=== PATIENT | female | born 1955 | race African-American/Black ===

== ENCOUNTER 2019-05-29 07:58 | Inpatient (IN) | payer MEDICAID ==
[~2019-05-29] VITALS: Ht 165.1 cm; Wt 87.5 kg
[2019-05-29] MEDS ORDERED: ONDANSETRON HCL 4MG/2ML INJ IV STA (08:28)
[2019-05-29] MEDS ORDERED: MORPHINE SULFATE 4 MG/ML CPJ (NOT FOR IM USE) IV STA (08:28)
[2019-05-29] MEDS ORDERED: NITROGLYCERIN 0.4MG TABLET SL SL PRN ×2 (08:30→12:00)
[2019-05-29 08:52] LABS: CHLORIDE 105 mEq/L (98-107)
[2019-05-29 08:56] LABS: D-DIMER 0.81 mg/L FEU (<0.50); PARTIAL THROMBOPLASTIN TIME 27.1 sec (23.4-31.0); PROTHROMBIN TIME 10.4 sec (9.6-11.0)
[2019-05-29 08:57] LABS: BASOPHILS % 0.5 % (0.0-2.0); HEMATOCRIT. 42.7 % (36.0-48.0); HEMOGLOBIN. 14.5 g/dL (12.0-16.0); LYMPHOCYTES % 22.1 % (20.0-50.0); MEAN CORPUSCULAR HEMOGLOBIN 32.1 pg (28.0-32.0); MEAN CORPUSCULAR VOLUME 94.9 fL (81.0-99.0); MEAN PLATELET VOLUME 8.2 fl (7.4-10.4); MONOCYTES % 4.6 % (2.0-8.0); NEUTROPHILS % 72.8 % (40.0-76.0); PLATELET 288 x1000/uL (130-400); RED CELL DISTRIBUTION WIDTH 13.8 % (11.6-14.6)
[2019-05-29] MEDS ORDERED: CLONIDINE 0.2MG TABLET PO ONE (09:45)
[2019-05-29] MEDS ORDERED: IOHEXOL-350 100 ML BOTTLE ONE (10:44)
[2019-05-29] MEDS ORDERED: HYDRALAZINE 20MG/ML VIAL IV ONE (11:00)
[2019-05-29] MEDS ORDERED: MAGNESIUM/ALUMINUM HYDROXIDE/SIMETHICONE 30ML UDC PO PRN (12:00)
[2019-05-29] MEDS ORDERED: ONDANSETRON HCL 4MG/2ML INJ IV PRN (12:00)
[2019-05-29] MEDS ORDERED: GUAIFENESIN 200MG/10ML SUGAR FREE UDC PO PRN (12:00)
[2019-05-29] MEDS ORDERED: IPRATROPIUM/ALBUTEROL 0.5-3(2.5)MG/3ML NEB NEB PRN (12:00)
[2019-05-29] MEDS ORDERED: LABETALOL 5MG/ML SYR 20 MG/4 ML SYRINGE IV ONE (12:00)
[2019-05-29] MEDS ORDERED: LORAZEPAM 0.5MG TABLET PO PRN (12:00)
[2019-05-29] MEDS ORDERED: DOCUSATE SODIUM 100MG CAPSULE PO PRN (12:00)
[2019-05-29] MEDS ORDERED: KETOROLAC 15MG/ML VIAL IV PRN (12:00)
[2019-05-29] MEDS ORDERED: CLONIDINE 0.1MG TABLET PO PRN (12:00)
[2019-05-29] MEDS ORDERED: ACETAMINOPHEN 325MG TABLET PO PRN (12:00)
[2019-05-29] MEDS: HYDRALAZINE HCL 25MG TABLET PO SCH ×2 (12:38→22:00)
[2019-05-29 13:00] VITALS: BP 178/106
[2019-05-29] MEDS: AMLODIPINE 10MG TABLET PO SCH (13:27)
[2019-05-29 13:40] VITALS: BP 178/106
[2019-05-29] MEDS: ENOXAPARIN 40MG/0.4ML SYR SUBCUT SCH (14:05)
[2019-05-29] MEDS ORDERED: CLON-457 MT (15:43)
[2019-05-29] MEDS ORDERED: AMLO5TAB88 MT (15:44)
[2019-05-29 15:58] LABS: CREATINE KINASE 142 IU/L (26-192)
[2019-05-29 15:59] LABS: CREATINE KINASE MB FRACTION 1.7 ng/mL (0.5-3.6)
[2019-05-29 16:00] VITALS: BP 89/62
[2019-05-29 20:13] VITALS: BP 72/48
[2019-05-29] MEDS: METOPROLOL TARTRATE 25MG TABLET PO SCH (21:00)
[2019-05-29] MEDS ORDERED: ZOLPIDEM TARTRATE 5MG TABLET PO PRN (21:00)
[2019-05-29] MEDS: LISINOPRIL 20MG TABLET PO SCH (21:00)
[2019-05-29] MEDS: FAMOTIDINE 20MG TABLET PO SCH (21:09)
[2019-05-29] MEDS: SODIUM CHLORIDE 0.9% 1,000 ML IV SCH (22:12)
[2019-05-29] MEDS ORDERED: LEVOFLOXACIN 500MG PREMIX 100 ML IV SCH (23:00)
[2019-05-29 23:58] LABS: CREATINE KINASE 118 IU/L (26-192); CREATINE KINASE MB FRACTION 1.1 ng/mL (0.5-3.6)
[2019-05-30 00:33] VITALS: BP 85/59
[2019-05-30 02:45] VITALS: BP 90/56
[2019-05-30 04:28] VITALS: BP 91/63
[2019-05-30] MEDS: HYDRALAZINE HCL 25MG TABLET PO SCH ×2 (05:18→14:00)
[2019-05-30] MEDS: SODIUM CHLORIDE 0.9% 1,000 ML IV SCH (05:50)
[2019-05-30 08:39] VITALS: BP 102/61
[2019-05-30] MEDS: METOPROLOL TARTRATE 25MG TABLET PO SCH (09:00)
[2019-05-30] MEDS ORDERED: ASPIRIN 325MG EC TABLET PO SCH (09:00)
[2019-05-30] MEDS: LISINOPRIL 20MG TABLET PO SCH (09:00)
[2019-05-30] MEDS: AMLODIPINE 10MG TABLET PO SCH (09:00)
[2019-05-30] MEDS: FAMOTIDINE 20MG TABLET PO SCH (09:07)
[2019-05-30] MEDS: ENOXAPARIN 40MG/0.4ML SYR SUBCUT SCH (09:08)
[2019-05-30 09:25] LABS: CLARITY URINE CLEAR (CLEAR); COLOR URINE DARK YELLOW (YELLOW); KETONES URINE 1+ (NEGATIVE); LEUKOCYTE ESTERASE URINE TRACE (NEGATIVE); NITRITE URINE NEGATIVE (NEGATIVE); OCCULT BLOOD URINE NEGATIVE (NEGATIVE); PROTEIN URINE TRACE (NEGATIVE)
[2019-05-30 10:01] LABS: *AMPHETAMINES SCREEN URINE NEGATIVE (NEGATIVE); *BARBITURATES SCREEN URINE NEGATIVE (NEGATIVE); *BENZODIAZEPINES SCREEN URINE NEGATIVE (NEGATIVE); *COCAINE SCREEN URINE PRESUMTIVE POSITIVE (NEGATIVE)
[2019-05-30 10:02] LABS: CANNABINOID URINE SCREEN NEGATIVE (NEGATIVE); METHADONE URINE SCREEN NEGATIVE (NEGATIVE); OPIATES URINE SCREEN PRESUMTIVE POSITIVE (NEGATIVE); PHENCYCLIDINE URINE SCREEN PRESUMTIVE POSITIVE (NEGATIVE)
[2019-05-30 12:01] VITALS: BP 114/74
[2019-05-30 13:42] VITALS: BP 114/74
[2019-05-30] MEDS ORDERED: LEVOFLOXACIN 250MG TABLET PO SCH (23:00)
[2019-05-30] MEDS ORDERED: LEVOFLOXACIN 250MG PREMIX 50 ML IV SCH (23:00)
== END 2019-05-30 14:35 | disposition home or self-care (01) | DRG 203 ==
LOC: ER 08:23 → 6WST 10:29 → ENRESERV 11:16
PROVIDERS: ADMIT Internal Medicine; ATTEND Internal Medicine
DX: R07.89 Other chest pain (principal); I10 Essential (primary) hypertension; Z79.899 Other long term (current) drug therapy
CPT/HCPCS: 36415; 71045; 71275; 80061; 80305; 81003; 82550; 82553; 83036; 83880; 84484; 85379; 93005; 93970; 99285; J0360; J1650; J1956; J2270; J2405; J3490; J7030; Q9967

== ENCOUNTER 2021-12-05 19:49 | Inpatient (IN) | payer MEDICAID ==
[~2021-12-05] VITALS: Ht 166.4 cm; Wt 90.3 kg
[~2021-12-05 19:49] MED LIST: ACET-2708 MT; AMLO5TAB88 MT; CLON-457 MT; CLON0.1T MT; FAMO-135 MT; ONDA4TAB5 MT
[2021-12-05] MEDS ORDERED: MORPHINE SULFATE 4 MG/ML CPJ (NOT FOR IM USE) IV STA (21:55)
[2021-12-05] MEDS ORDERED: ONDANSETRON HCL 4MG/2ML INJ IV STA (21:55)
[2021-12-05] MEDS ORDERED: SODIUM CHLORIDE 0.9% 1,000 ML IV ONE (22:00)
[2021-12-05] MEDS ORDERED: MORPHINE SULFATE 4 MG/ML CPJ (NOT FOR IM USE) IV NR (23:07)
[2021-12-05] MEDS ORDERED: ONDANSETRON HCL 4MG/2ML INJ IV NR (23:07)
[2021-12-05 23:15] LABS: BASOPHILS % 0.7 % (0.0-2.0); HEMATOCRIT. 42.5 % (36.0-48.0); HEMOGLOBIN. 14.2 g/dL (12.0-16.0); LYMPHOCYTES % 12.8 % (20.0-50.0); MEAN CORPUSCULAR HEMOGLOBIN 30.9 pg (28.0-32.0); MEAN CORPUSCULAR VOLUME 92.3 fL (81.0-99.0); MONOCYTES % 1.5 % (2.0-8.0); PLATELET 287 x1000/uL (130-400); RED CELL DISTRIBUTION WIDTH 14.4 % (11.6-14.6)
[2021-12-05 23:23] LABS: CHLORIDE 103 mEq/L (98-107)
[2021-12-05 23:25] LABS: PARTIAL THROMBOPLASTIN TIME 26.9 sec (23.4-31.0); PROTHROMBIN TIME 10.6 sec (9.6-11.0)
[2021-12-06] VITALS (8 sets, daily range): BP systolic 131–142; BP diastolic 85–95
[2021-12-06] MEDS ORDERED: CEFTRIAXONE 1 G PREMIX 50 ML IV ONE
[2021-12-06] MEDS ORDERED: CEFTRIAXONE 1,000 MG in DEXTROSE 5% WATER 50 ML IV SCH (01:00)
[2021-12-06] MEDS ORDERED: ASPIRIN 325MG EC TABLET PO ONE (01:45)
[2021-12-06] MEDS: CLONIDINE 0.2MG TABLET PO PRN (06:17)
[2021-12-06] MEDS ORDERED: DOCUSATE SODIUM 100MG CAPSULE PO PRN (12:15)
[2021-12-06] MEDS ORDERED: ACETAMINOPHEN 325MG TABLET PO PRN (12:15)
[2021-12-06] MEDS ORDERED: MAGNESIUM/ALUMINUM HYDROXIDE/SIMETHICONE 30ML UDC PO PRN (12:15)
[2021-12-06] MEDS ORDERED: NALOXONE HCL 0.4MG/ML VIAL IV PRN (13:00)
[2021-12-06] MEDS: ENOXAPARIN 40MG/0.4ML SYR SUBCUT SCH (13:47)
[2021-12-06] MEDS: SODIUM CHLORIDE 0.9% 1,000 ML IV SCH (13:53)
[2021-12-06] MEDS ORDERED: FAMOTIDINE 20MG TABLET PO SCH (21:00)
[2021-12-07] VITALS (8 sets, daily range): BP systolic 130–206; BP diastolic 68–136
[2021-12-07] MEDS: SODIUM CHLORIDE 0.9% 1,000 ML IV SCH ×2 (01:35→15:38)
[2021-12-07] MEDS: ONDANSETRON HCL 4MG/2ML INJ IV PRN ×2 (04:33→10:57)
[2021-12-07] MEDS: HYDROCODONE/ACETAMINOPHEN 5/325MG TABLET PO PRN (06:26)
[2021-12-07 06:28] LABS: BASOPHILS % 0.7 % (0.0-2.0); EOSINOPHILS % 0.5 % (0.0-5.0); HEMATOCRIT. 38.8 % (36.0-48.0); HEMOGLOBIN. 12.9 g/dL (12.0-16.0); LYMPHOCYTES % 33.7 % (20.0-50.0); MEAN CORPUSCULAR HEMOGLOBIN 30.6 pg (28.0-32.0); MEAN CORPUSCULAR VOLUME 92.4 fL (81.0-99.0); MEAN PLATELET VOLUME 8.7 fl (7.4-10.4); MONOCYTES % 8.3 % (2.0-8.0); NEUTROPHILS % 56.8 % (40.0-76.0); PLATELET 268 x1000/uL (130-400); RED CELL DISTRIBUTION WIDTH 14.4 % (11.6-14.6)
[2021-12-07 07:37] LABS: PHOSPHORUS 2.8 mg/dL (2.5-4.9); T4 FREE 1.24 ng/dL (0.76-1.46)
[2021-12-07] MEDS: CLONIDINE 0.2MG TABLET PO PRN (08:31)
[2021-12-07] MEDS ORDERED: AMLODIPINE 5MG TABLET PO SCH (09:00)
[2021-12-07] MEDS ORDERED: METOCLOPRAMIDE HCL 10MG/2ML VIAL IV SCH ×2 (11:45→12:00)
[2021-12-07] MEDS: METOCLOPRAMIDE HCL 10MG/2ML VIAL IV SCH ×3 (12:02→22:10)
[2021-12-07] MEDS: HYDRALAZINE 20MG/ML VIAL IV SCH ×3 (12:03→23:04)
[2021-12-07] MEDS: PANTOPRAZOLE SODIUM 40 MG/VIAL IV SCH (13:31)
[2021-12-07] MEDS: ENOXAPARIN 40MG/0.4ML SYR SUBCUT SCH (13:31)
[2021-12-07] MEDS: AMLODIPINE 5MG TABLET PO SCH (18:05)
[2021-12-07 23:56] LABS: CLARITY URINE CLEAR (CLEAR); COLOR URINE YELLOW (YELLOW); KETONES URINE NEGATIVE (NEGATIVE); LEUKOCYTE ESTERASE URINE TRACE (NEGATIVE); NITRITE URINE NEGATIVE (NEGATIVE); OCCULT BLOOD URINE NEGATIVE (NEGATIVE); PROTEIN URINE TRACE (NEGATIVE); SPECIFIC GRAVITY URINE 1.013 (1.005-1.030)
[2021-12-08 00:17] LABS: *AMPHETAMINES SCREEN URINE NEGATIVE (NEGATIVE); *BARBITURATES SCREEN URINE NEGATIVE (NEGATIVE); *BENZODIAZEPINES SCREEN URINE NEGATIVE (NEGATIVE); *COCAINE SCREEN URINE PRESUMTIVE POSITIVE (NEGATIVE); CANNABINOID URINE SCREEN NEGATIVE (NEGATIVE); METHADONE URINE SCREEN NEGATIVE (NEGATIVE); OPIATES URINE SCREEN PRESUMTIVE POSITIVE (NEGATIVE); PHENCYCLIDINE URINE SCREEN PRESUMTIVE POSITIVE (NEGATIVE)
[2021-12-08] MEDS: SODIUM CHLORIDE 0.9% 1,000 ML IV SCH ×3 (01:34→21:09)
[2021-12-08 04:00] VITALS: BP 132/74
[2021-12-08 06:01] LABS: BASOPHILS % 0.5 % (0.0-2.0); EOSINOPHILS % 0.7 % (0.0-5.0); HEMATOCRIT. 38.7 % (36.0-48.0); HEMOGLOBIN. 12.7 g/dL (12.0-16.0); LYMPHOCYTES % 46.5 % (20.0-50.0); MEAN CORPUSCULAR HEMOGLOBIN 30.2 pg (28.0-32.0); MEAN CORPUSCULAR VOLUME 92.1 fL (81.0-99.0); MEAN PLATELET VOLUME 8.4 fl (7.4-10.4); MONOCYTES % 7.7 % (2.0-8.0); NEUTROPHILS % 44.6 % (40.0-76.0); PLATELET 268 x1000/uL (130-400); RED CELL DISTRIBUTION WIDTH 14.4 % (11.6-14.6)
[2021-12-08] MEDS: METOCLOPRAMIDE HCL 10MG/2ML VIAL IV SCH ×3 (06:41→21:09)
[2021-12-08] MEDS: HYDRALAZINE 20MG/ML VIAL IV SCH ×4 (06:41→23:49)
[2021-12-08 08:00] VITALS: BP 137/102
[2021-12-08] MEDS: AMLODIPINE 5MG TABLET PO SCH ×2 (08:54→17:03)
[2021-12-08] MEDS: HYDROCODONE/ACETAMINOPHEN 5/325MG TABLET PO PRN ×2 (08:55→21:13)
[2021-12-08] MEDS: PANTOPRAZOLE SODIUM 40 MG/VIAL IV SCH (08:55)
[2021-12-08] MEDS ORDERED: PANTOPRAZOLE SODIUM 40 MG/VIAL IV SCH (09:00)
[2021-12-08 12:00] VITALS: BP 151/102
[2021-12-08] MEDS ORDERED: POTASSIUM CHLORIDE INJ 40 MEQ in DEXT 5% WATER 250 ML IV SCH (13:00)
[2021-12-08] MEDS ORDERED: KCL 20MEQ/100ML X 2 FOR TOTAL KCL 40MEQ/200ML IV SCH (15:00)
[2021-12-08] MEDS ORDERED: ENOXAPARIN 30MG/0.3ML SYR SUBCUT SCH (15:00)
[2021-12-08] MEDS: CLONIDINE 0.2MG TABLET PO PRN (15:48)
[2021-12-08 16:00] VITALS: BP 173/101
[2021-12-08] MEDS ORDERED: POTASSIUM CHLORIDE 20MEQ TABLET SR PO NR (16:00)
[2021-12-08 20:00] VITALS: BP 132/70
[2021-12-09] VITALS: BP 130/70
[2021-12-09 04:00] VITALS: BP 143/98
[2021-12-09] MEDS: METOCLOPRAMIDE HCL 10MG/2ML VIAL IV SCH (05:47)
[2021-12-09] MEDS: HYDRALAZINE 20MG/ML VIAL IV SCH (05:47)
[2021-12-09 05:50] LABS: BASOPHILS % 0.6 % (0.0-2.0); EOSINOPHILS % 1.6 % (0.0-5.0); HEMATOCRIT. 36.5 % (36.0-48.0); HEMOGLOBIN. 12.3 g/dL (12.0-16.0); LYMPHOCYTES % 43.1 % (20.0-50.0); MEAN CORPUSCULAR HEMOGLOBIN 30.7 pg (28.0-32.0); MEAN PLATELET VOLUME 8.6 fl (7.4-10.4); MONOCYTES % 9.6 % (2.0-8.0); NEUTROPHILS % 45.1 % (40.0-76.0); PLATELET 264 x1000/uL (130-400); RED BLOOD CELL COUNT 4.01 mill/uL (4.2-5.4); RED CELL DISTRIBUTION WIDTH 14.2 % (11.6-14.6)
[2021-12-09 08:00] VITALS: BP 141/90
[2021-12-09] MEDS ORDERED: METO5TAB86 PO (08:09)
[2021-12-09] MEDS ORDERED: AMLO5TAB88 MT (08:09)
[2021-12-09 08:36] VITALS: BP 141/90
[2021-12-09 09:17] VITALS: BP 141/90
[2021-12-09] MEDS: HYDROCODONE/ACETAMINOPHEN 5/325MG TABLET PO PRN (09:17)
[2021-12-09] MEDS: PANTOPRAZOLE SODIUM 40 MG/VIAL IV SCH (09:17)
[2021-12-09] MEDS: AMLODIPINE 5MG TABLET PO SCH (09:17)
[2021-12-09] MEDS: SODIUM CHLORIDE 0.9% 1,000 ML IV SCH (09:18)
== END 2021-12-09 11:26 | disposition home or self-care (01) | DRG 469 ==
LOC: ER 19:49 → MICUSO 23:34 → EDBEDREQ 23:37 → EDBEDREQTM 23:37 → 5EST 12-06 00:05 → MICUSO 12-06 03:04 → 6WST 12-06 07:12
PROVIDERS: ADMIT Internal Medicine; ATTEND Internal Medicine
DX: N17.9 Acute kidney failure, unspecified (principal); E44.1 Mild protein-calorie malnutrition; I13.10 Hypertensive heart and chronic kidney disease without heart failure, with stage 1 through stage 4 chronic kidney disease, or unspecified chronic kidney disease; I12.9 Hypertensive chronic kidney disease with stage 1 through stage 4 chronic kidney disease, or unspecified chronic kidney disease; E87.6 Hypokalemia; N18.32 Chronic kidney disease, stage 3b; Z96.659 Presence of unspecified artificial knee joint; Z20.822 Contact with and (suspected) exposure to COVID-19; I16.0 Hypertensive urgency; F19.10 Other psychoactive substance abuse, uncomplicated; F12.10 Cannabis abuse, uncomplicated; F11.10 Opioid abuse, uncomplicated; F16.10 Hallucinogen abuse, uncomplicated; Z87.891 Personal history of nicotine dependence; Z82.49 Family history of ischemic heart disease and other diseases of the circulatory system; Z83.3 Family history of diabetes mellitus; Z71.51 Drug abuse counseling and surveillance of drug abuser; Z79.899 Other long term (current) drug therapy; Z68.32 Body mass index [BMI] 32.0-32.9, adult
CPT/HCPCS: 36415; 71045; 74176; 76700; 80048; 80053; 80061; 80076; 80305; 81003; 83735; 83880; 84100; 84145; 84439; 84443; 84484; 85025; 86850; 86900; 93005; 93970; 99285; C1893; C9113; J0360; J0696; J1650; J2270; J2405; J2765; J3480; J7030; J7060

== ENCOUNTER 2023-02-22 12:14 | Inpatient (IN) | payer BC, MEDICAID ==
[~2023-02-22] VITALS: Ht 157.5 cm; Wt 82.7 kg
[~2023-02-22 12:14] MED LIST changes: -CLON0.1T MT; +METO5TAB86 PO
[2023-02-22] MEDS ORDERED: CLONIDINE 0.2MG TABLET PO ONE (13:00)
[2023-02-22] MEDS ORDERED: ONDANSETRON 4MG ODT PO ONE (13:00)
[2023-02-22] MEDS ORDERED: CLONIDINE 0.1MG TABLET PO SCH (13:15)
[2023-02-22 13:24] LABS: BASOPHILS % 0.8 % (0.0-2.0); EOSINOPHILS % 1.1 % (0.0-5.0); HEMATOCRIT. 41.7 % (36.0-48.0); HEMOGLOBIN. 13.8 g/dL (12.0-16.0); MEAN CORPUSCULAR HEMOGLOBIN 31.4 pg (28.0-32.0); MEAN CORPUSCULAR VOLUME 95.1 fL (81.0-99.0); NEUTROPHILS % 67.1 % (40.0-76.0); PLATELET 239 x1000/uL (130-400); RED BLOOD CELL COUNT 4.38 mill/uL (4.2-5.4); RED CELL DISTRIBUTION WIDTH 15.2 % (11.6-14.6); WHITE BLOOD COUNT 9.8 x1000/uL (4.5-11.0)
[2023-02-22] MEDS ORDERED: AMLODIPINE 5MG TABLET PO NR (13:30)
[2023-02-22 13:56] LABS: CHLORIDE 108 mEq/L (98-107); INDEX HEMOLYSI 1 (1-3); INDEX ICTERIC 1 (1-4); INDEX LIPEMIC 1 (1-3); POTASSIUM 4.2 mEq/L (3.5-5.1); SODIUM 138 mEq/L (136-145)
[2023-02-22 14:06] LABS: ALANINE AMINOTRANSFERASE 39 IU/L (13-61); ASPARTATE AMINOTRANSFERASE 35 IU/L (15-37); BILIRUBIN TOTAL 0.6 mg/dL (0.1-1.0); CALCIUM 9.5 mg/dL (8.5-10.1); CARBON DIOXIDE 25 mEq/L (21-32); CREATININE 1.6 mg/dL (0.6-1.3); GLUCOSE 164 mg/dL (70-105); PROTEIN TOTAL 8.5 g/dL (6.0-8.3); TROPONIN I HIGH SENSITIVITY 22 ng/L (<54); UREA NITROGEN BLOOD 26 mg/dL (7-21)
[2023-02-22 14:35] LABS: CLARITY URINE CLEAR (CLEAR); COLOR URINE YELLOW (YELLOW); GLUCOSE URINE NEGATIVE (NEGATIVE); KETONES URINE NEGATIVE (NEGATIVE); LEUKOCYTE ESTERASE URINE NEGATIVE (NEGATIVE); NITRITE URINE NEGATIVE (NEGATIVE); OCCULT BLOOD URINE TRACE (NEGATIVE); PROTEIN URINE 1+ (NEGATIVE); SPECIFIC GRAVITY URINE 1.009 (1.005-1.030); UROBILINOGEN URINE 0.2 E.U./dL (0.2-1.0)
[2023-02-22] MEDS ORDERED: ENOXAPARIN 80MG/0.8ML SYR SUBCUT NR (14:45)
[2023-02-22] MEDS ORDERED: HYDRALAZINE 20MG/ML VIAL IV NR ×2 (14:45→18:15)
[2023-02-22] MEDS ORDERED: ONDANSETRON HCL 4MG/2ML INJ IV ONE (15:00)
[2023-02-22 15:02] LABS: SQUAMOUS EPITHELIAL CELL URINE FEW /lpf (RARE/1+)
[2023-02-22 15:04] LABS: BACTERIA URINE NONE SEEN; RBC URINE 0-2 /hpf (0-2); WBC URINE NONE SEEN /hpf (0-2)
[2023-02-22] MEDS ORDERED: LABETALOL 5MG/ML SYR 20 MG/4 ML SYRINGE IV NR (20:30)
[2023-02-22] MEDS ORDERED: HYDRALAZINE 20MG/ML VIAL IV PRN (22:00)
[2023-02-22 23:00] VITALS: BP 180/101; PULSE 115; RESP 19; TEMP 98.5
[2023-02-23] MEDS: CLONIDINE 0.1MG TABLET PO SCH ×3 (06:26→22:00)
[2023-02-23 08:00] VITALS: BP 187/121; PULSE 136; RESP 20; TEMP 97.9
[2023-02-23] MEDS ORDERED: LIDOCAINE HCL 1% 10 MG/ML 10ML VIAL ONE (08:23)
[2023-02-23 09:20] LABS: BASOPHILS % 0.8 % (0.0-2.0); HEMOGLOBIN. 13.5 g/dL (12.0-16.0); LYMPHOCYTES % 19.9 % (20.0-50.0); MEAN CORPUSCULAR HEMOGLOBIN 31.2 pg (28.0-32.0); MEAN CORPUSCULAR VOLUME 94.4 fL (81.0-99.0); MEAN PLATELET VOLUME 8.8 fl (7.4-10.4); MONOCYTES % 7.7 % (2.0-8.0); NEUTROPHILS % 71.6 % (40.0-76.0); PLATELET 279 x1000/uL (130-400); RED BLOOD CELL COUNT 4.34 mill/uL (4.2-5.4); RED CELL DISTRIBUTION WIDTH 14.5 % (11.6-14.6); WHITE BLOOD COUNT 14.6 x1000/uL (4.5-11.0)
[2023-02-23 09:28] LABS: PROTHROMBIN TIME 10.8 sec (9.6-11.0)
[2023-02-23 09:56] LABS: POTASSIUM 4.2 mEq/L (3.5-5.1)
[2023-02-23 10:02] LABS: CALCIUM 9.5 mg/dL (8.5-10.1); CREATININE 1.6 mg/dL (0.6-1.3)
[2023-02-23] MEDS: AMLODIPINE 5MG TABLET PO SCH ×2 (11:58→21:42)
[2023-02-23 12:00] VITALS: BP 128/79; PULSE 98; RESP 18; TEMP 98
[2023-02-23 12:50] LABS: *AMPHETAMINES SCREEN URINE NEGATIVE (NEGATIVE); *BARBITURATES SCREEN URINE NEGATIVE (NEGATIVE); *BENZODIAZEPINES SCREEN URINE NEGATIVE (NEGATIVE); *COCAINE SCREEN URINE PRESUMTIVE POSITIVE (NEGATIVE); CANNABINOID URINE SCREEN NEGATIVE (NEGATIVE); ECSTASY MDMA SCREEN URINE NEGATIVE (NEGATIVE); METHADONE URINE SCREEN NEGATIVE (NEGATIVE); OPIATES URINE SCREEN NEGATIVE (NEGATIVE); PHENCYCLIDINE URINE SCREEN PRESUMTIVE POSITIVE (NEGATIVE)
[2023-02-23] MEDS: NITROGLYCERIN OINT 1GM/INCH UDPKT TD SCH ×3 (14:00→22:00)
[2023-02-23 16:00] VITALS: BP 130/86; PULSE 105; RESP 20; TEMP 98.1
[2023-02-23 20:00] VITALS: BP 126/70; PULSE 100; RESP 18; TEMP 97.6
[2023-02-23] MEDS ORDERED: CLONIDINE 0.1MG TABLET PO SCH (22:00)
[2023-02-23] MEDS ORDERED: MORPHINE SULFATE 2 MG/ML CPJ (NOT FOR IM USE) IV PRN (22:15)
[2023-02-23] MEDS ORDERED: ONDANSETRON HCL 4MG/2ML INJ IV PRN (22:15)
[2023-02-23] MEDS ORDERED: *PATIENT'S OWN MEDICATION STORAGE XX SCH (22:45)
[2023-02-23] MEDS: SODIUM CHLORIDE 0.9% 1,000 ML IV SCH (23:55)
[2023-02-24] VITALS (7 sets, daily range): BP systolic 90–134; BP diastolic 60–87; PULSE 78–107; RESP 18–21; TEMP 96.6–98.3
[2023-02-24] MEDS: CLONIDINE 0.1MG TABLET PO SCH ×2 (05:18→21:12)
[2023-02-24] MEDS: NITROGLYCERIN OINT 1GM/INCH UDPKT TD SCH (05:18)
[2023-02-24 07:28] LABS: BASOPHILS % 0.3 % (0.0-2.0); EOSINOPHILS % 1.2 % (0.0-5.0); HEMATOCRIT. 33.6 % (36.0-48.0); HEMOGLOBIN. 11.5 g/dL (12.0-16.0); LYMPHOCYTES % 41.7 % (20.0-50.0); MEAN CORPUSCULAR HEMOGLOBIN 32.1 pg (28.0-32.0); MEAN CORPUSCULAR HGB CONC 34.3 g/dL (31.0-37.0); MEAN CORPUSCULAR VOLUME 93.5 fL (81.0-99.0); MEAN PLATELET VOLUME 8.4 fl (7.4-10.4); MONOCYTES % 7.7 % (2.0-8.0); NEUTROPHILS % 49.1 % (40.0-76.0); PLATELET 209 x1000/uL (130-400); RED CELL DISTRIBUTION WIDTH 14.5 % (11.6-14.6); WHITE BLOOD COUNT 10.1 x1000/uL (4.5-11.0)
[2023-02-24 07:39] LABS: POTASSIUM 4.4 mEq/L (3.5-5.1)
[2023-02-24 07:50] LABS: CALCIUM 8.2 mg/dL (8.5-10.1); CREATININE 2.2 mg/dL (0.6-1.3)
[2023-02-24] MEDS: AMLODIPINE 5MG TABLET PO SCH ×2 (10:27→21:12)
[2023-02-24] MEDS: SODIUM CHLORIDE 0.9% 1,000 ML IV SCH (11:05)
[2023-02-25 04:00] VITALS: BP 105/81; PULSE 65; RESP 18; TEMP 98.1
[2023-02-25 08:00] VITALS: BP 138/89; PULSE 120; RESP 20; TEMP 98.1
[2023-02-25 08:34] LABS: BASOPHILS % 0.3 % (0.0-2.0); EOSINOPHILS % 2.5 % (0.0-5.0); HEMOGLOBIN. 11.4 g/dL (12.0-16.0); LYMPHOCYTES % 37.1 % (20.0-50.0); MEAN CORPUSCULAR HEMOGLOBIN 31.8 pg (28.0-32.0); MEAN CORPUSCULAR HGB CONC 33.6 g/dL (31.0-37.0); MEAN CORPUSCULAR VOLUME 94.6 fL (81.0-99.0); MEAN PLATELET VOLUME 8.6 fl (7.4-10.4); MONOCYTES % 9.3 % (2.0-8.0); NEUTROPHILS % 50.8 % (40.0-76.0); PLATELET 189 x1000/uL (130-400); RED BLOOD CELL COUNT 3.59 mill/uL (4.2-5.4); RED CELL DISTRIBUTION WIDTH 14.2 % (11.6-14.6); WHITE BLOOD COUNT 8.4 x1000/uL (4.5-11.0)
[2023-02-25 09:31] LABS: CALCIUM 7.9 mg/dL (8.5-10.1); CREATININE 1.8 mg/dL (0.6-1.3); POTASSIUM 4.4 mEq/L (3.5-5.1)
[2023-02-25] MEDS: CLONIDINE 0.1MG TABLET PO SCH (09:51)
[2023-02-25] MEDS: AMLODIPINE 5MG TABLET PO SCH (09:52)
[2023-02-25 12:00] VITALS: BP 111/62; PULSE 94; RESP 19; TEMP 96.2
[2023-02-25] MEDS ORDERED: NALOXONE HCL 0.4MG/ML VIAL IV PRN (13:30)
[2023-02-25 16:48] VITALS: BP 149/93; PULSE 96; TEMP 98.2; O2SAT 98
[2023-02-25] MEDS ORDERED: AMLODIPINE 2.5MG TABLET PO SCH (21:00)
== END 2023-02-25 18:45 | disposition home or self-care (01) | DRG 683 ==
LOC: ER 12:36 → EDBEDREQ 14:48 → EDBEDREQTM 16:12 → 8WST 21:46
PROVIDERS: ADMIT Internal Medicine; ATTEND Internal Medicine
PROC: 02HV33Z Insertion of Infusion Device into Superior Vena Cava, Percutaneous Approach (ICD-10-PCS; principal; 2023-02-23)
PROC: B548ZZA Ultrasonography of Superior Vena Cava, Guidance (ICD-10-PCS; 2023-02-23)
PROC: B5181ZA Fluoroscopy of Superior Vena Cava using Low Osmolar Contrast, Guidance (ICD-10-PCS; 2023-02-23)
DX: N17.0 Acute kidney failure with tubular necrosis (principal); I16.9 Hypertensive crisis, unspecified; N18.9 Chronic kidney disease, unspecified; I12.9 Hypertensive chronic kidney disease with stage 1 through stage 4 chronic kidney disease, or unspecified chronic kidney disease; K21.9 Gastro-esophageal reflux disease without esophagitis; E86.0 Dehydration; M19.90 Unspecified osteoarthritis, unspecified site; R79.89 Other specified abnormal findings of blood chemistry; E86.9 Volume depletion, unspecified; I35.8 Other nonrheumatic aortic valve disorders; F17.200 Nicotine dependence, unspecified, uncomplicated; Z79.899 Other long term (current) drug therapy; Z82.49 Family history of ischemic heart disease and other diseases of the circulatory system; Z83.3 Family history of diabetes mellitus
CPT/HCPCS: 36415; 36573; 71045; 78580; 80048; 80053; 80305; 81003; 82150; 83735; 84484; 85025; 85379; 93005; 93306; 93970; 99291; C1725; C1893; J0360; J1650; J2270; J2405; J3490; J7030; Q0162